=== PATIENT | female | born 1995 | race African-American/Black ===

== ENCOUNTER 2019-04-06 03:11 | Emergency (ER) | payer MEDICAID ==
[~2019-04-06] VITALS: Ht 170.2 cm; Wt 53.0 kg
[2019-04-06 03:20] VITALS: BP 111/71
== END 2019-04-06 03:50 | disposition home or self-care (01) ==
LOC: ER 03:11
DX: L20.9 Atopic dermatitis, unspecified (principal)
CPT/HCPCS: 99283